=== PATIENT | male | born 1945 | race Two or more races ===

== ENCOUNTER 2022-08-23 14:38 | Inpatient (IN) | payer OTHER ==
[~2022-08-23] VITALS: Ht 188 cm; Wt 81.6 kg
--- NOTE | 2022-08-23 14:48 | NUR ---
SE RECIBE PACIENTE ALERTA Y ORIENTADO X3 DE AMBULANCIA QUIEN REFIERE PRESENTA [place] HACE MESES TAMBIEN REFIERE FATIGA PACIENTE COPD. SE MONITOREAN LOS SV Y SE UBICA EN ASPEN.
[2022-08-23] MEDS ORDERED: TAMS0.4C (14:52)
[2022-08-23] MEDS ORDERED: ELIQUIS2.5 MG (14:52)
[2022-08-23] MEDS ORDERED: VASOTEC2.5 MG (14:52)
[2022-08-23] MEDS ORDERED: MONTELUKAST SODI4 M1 (14:52)
--- NOTE | 2022-08-23 17:17 | NUR ---
SE RECIBE PACIENTE MASCULINO ALERTA Y ORIENTADO X3 SE OBSERVAN BARANDA ELEVADA POR SEGURIDAD SE ЕЛЕНА MUESTRA DE LABORATORIO BAJO MEDIDA ASEPTICA SE ADMINISTRA MEDICAMENTO JERMAIN ORDENES MEDICA SE MANTIENE EN OBSERVAVION POR ALGUNA REACION ADVERSA ORDENDE EJECUTADA RK BOYER
[2022-08-27] MEDS ORDERED: SYMBICORT 16010.2 GM (14:27)
[2022-08-27] MEDS ORDERED: FUROSEMIDE20 MG (14:27)
[2022-08-27] MEDS ORDERED: FLONASE16 GM (14:28)
[2022-08-31] MEDS ORDERED: SYMBICORT 16010.2 GM IH (12:21)
[2022-08-31] MEDS ORDERED: FLONASE16 GM NASAL (12:21)
[2022-08-31] MEDS ORDERED: B Complex CAPSULE PO (12:21)
[2022-08-31] MEDS ORDERED: Neurin-Sl Tablet Sl SL (12:21)
[2022-08-31] MEDS ORDERED: CIPRO500 MG PO (12:21)
[2022-08-31] MEDS ORDERED: INTEGRA PLUS C1 EACH PO (12:21)
[2022-08-31] MEDS ORDERED: ASA81 MG PO (12:21)
[2022-08-31] MEDS ORDERED: INTESTINEX680 M1 PO (12:21)
[2022-08-31] MEDS ORDERED: TAMS0.4C PO (12:21)
[2022-08-31] MEDS ORDERED: FUROSEMIDE20 MG PO (12:21)
[2022-08-31] MEDS ORDERED: PROSCAR5 MG PO (12:21)
[2022-08-31] MEDS ORDERED: VASOTEC20 MG PO (12:21)
== END 2022-08-31 13:36 | disposition home or self-care (01) | DRG 593 ==
LOC: ER 14:38 → MEDI 20:46 → MEDJ 08-29 10:06
PROVIDERS: ADMIT Internal Medicine; ATTEND Internal Medicine
PROC: B44GZZZ Ultrasonography of Left Lower Extremity Arteries (ICD-10-PCS; 2022-08-23)
PROC: B54CZZZ Ultrasonography of Left Lower Extremity Veins (ICD-10-PCS; principal; 2022-08-24)
PROC: B246ZZZ Ultrasonography of Right and Left Heart (ICD-10-PCS; 2022-08-24)
PROC: BW21YZZ Computerized Tomography (CT Scan) of Abdomen and Pelvis using Other Contrast (ICD-10-PCS; 2022-08-24)
PROC: 3E0F7GC Introduction of Other Therapeutic Substance into Respiratory Tract, Via Natural or Artificial Opening (ICD-10-PCS; 2022-08-24)
PROC: CB221ZZ Tomographic (Tomo) Nuclear Medicine Imaging of Lungs and Bronchi using Technetium 99m (Tc-99m) (ICD-10-PCS; 2022-08-27)
DX: L97.829 Non-pressure chronic ulcer of other part of left lower leg with unspecified severity (principal); J44.1 Chronic obstructive pulmonary disease with (acute) exacerbation; L03.116 Cellulitis of left lower limb; N39.0 Urinary tract infection, site not specified; N13.39 Other hydronephrosis; N40.0 Benign prostatic hyperplasia without lower urinary tract symptoms; R33.8 Other retention of urine; R09.02 Hypoxemia; B96.89 Other specified bacterial agents as the cause of diseases classified elsewhere; L08.89 Other specified local infections of the skin and subcutaneous tissue; Z86.718 Personal history of other venous thrombosis and embolism; Z20.822 Contact with and (suspected) exposure to COVID-19

== ENCOUNTER 2022-11-07 16:40 | Emergency (ER) | payer OTHER ==
[~2022-11-07] VITALS: Ht 188 cm; Wt 95.3 kg
[~2022-11-07 16:40] MED LIST: ASA81 MG PO; B Complex CAPSULE PO; CIPRO500 MG PO; ELIQUIS2.5 MG; FLONASE16 GM; FLONASE16 GM NASAL; FUROSEMIDE20 MG; FUROSEMIDE20 MG PO; INTEGRA PLUS C1 EACH PO; INTESTINEX680 M1 PO; MONTELUKAST SODI4 M1; Neurin-Sl Tablet Sl SL; PROSCAR5 MG PO; SYMBICORT 16010.2 GM; SYMBICORT 16010.2 GM IH; TAMS0.4C; TAMS0.4C PO; VASOTEC2.5 MG; VASOTEC20 MG PO
[2022-11-07] MEDS ORDERED: PROVENTIL HFA6.7 GM IH (17:03)
== END 2022-11-07 19:44 | disposition home or self-care (01) ==
LOC: ER 16:40
DX: R33.9 Retention of urine, unspecified (principal); I10 Essential (primary) hypertension; Z87.09 Personal history of other diseases of the respiratory system

== ENCOUNTER 2023-12-26 12:14 | Inpatient (IN) | payer OTHER ==
[~2023-12-26] VITALS: Ht 188 cm; Wt 61.2 kg
[~2023-12-26 12:14] MED LIST changes: +PROVENTIL HFA6.7 GM IH
[2023-12-26] MEDS ORDERED: LEVALBUTEROL HCL 0.63 MG/3 ML SOLUTION IH ONE ×5 (12:43→15:21)
[2023-12-26] MEDS ORDERED: IPRATROPIUM BROMIDE 0.5 MG/2.5 ML AMPUL.NEB IH ONE ×5 (12:43→20:19)
[2023-12-26] MEDS ORDERED: METHYLPREDNISOLONE SOD SUCC 40 MG VIAL IV ONE (12:45)
[2023-12-26 12:53] LABS: HEMATOCRIT 38.4 % (39.0-48.0); MEAN CELL VOLUME 91.5 fL (80.0-100.00); MEAN CORPUSCULAR HGB CONC 33.9 g/dl (32.0-36.0); PLATELET COUNT 162 K/uL (150-450); RED CELL DISTRIBUTION WIDTH 13.3 % (11.5-14.5)
[2023-12-26 13:02] LABS: ABG PH 7.321 (7.35-7.45)
[2023-12-26 13:03] LABS: ABG PO2 61.3 mmHg (80-100); BASE EXCESS 3.2 mmol/l; BICARBONATE 31.2 mmol/l (23-25); SaO2 89.1 %; Tco2 33.1 mmol/l; allen test SATISFACTORY; o2 21 %; puncture site RADIAL RIGHT
[2023-12-26] MEDS ORDERED: METHYLPREDNISOLONE SOD SUCC 40 MG VIAL ONE (13:20)
[2023-12-26] MEDS ORDERED: LEVALBUTEROL HCL 0.63 MG/3 ML SOLUTION IH STA (14:18)
[2023-12-26 14:28] LABS: ABG pCO2 61.9 mmHg (35-45)
[2023-12-26 14:28] LABS: ALBUMIN 3.7 gm/dL (3.4-5.0); BILIRUBIN TOTAL 1.1 mg/dL (0.3-1.2); CALCIUM 8.9 mg/dL (8.5-10.1); CREATININE SERUM 1.17 mg/dL (0.70-1.30); GFR 60.14; GLOBULINA 3.8 G/DL (2.4-3.5); POTASSIUM 3.7 mEq/L (3.5-5.1); TOTAL PROTEIN 7.5 gm/dL (6.4-8.2)
[2023-12-26] MEDS ORDERED: BUDESONIDE 0.5 MG/2 ML AMPUL.NEB IH ONE (15:15)
[2023-12-26] MEDS ORDERED: TAMSULOSIN HCL 0.4 MG CAP PO ONE (17:45)
[2023-12-26] MEDS ORDERED: 0.9 % SODIUM CHLORIDE 1,000 ML IV SCH (19:30)
[2023-12-26] MEDS ORDERED: CEFTRIAXONE SODIUM 2,000 MG in 0.9 % SODIUM CHLORIDE 100 ML IV SCH (19:33)
[2023-12-26 19:45] LABS: ABG PH 7.363 (7.35-7.45); ABG PO2 262.2 mmHg (80-100); ABG pCO2 48.5 mmHg (35-45); BASE EXCESS 0.9 mmol/l; SaO2 99.8 %
[2023-12-26] MEDS ORDERED: ONDANSETRON HCL 4 MG in 0.9 % SODIUM CHLORIDE 50 ML IV PRN (19:45)
[2023-12-26] MEDS ORDERED: ACETAMINOPHEN 500 MG GEL..CAP PO PRN (19:45)
[2023-12-26] MEDS ORDERED: ENALAPRILAT DIHYDRATE 1.25 MG/ML VIAL IV PRN (19:45)
[2023-12-26 19:46] LABS: Tco2 28.5 mmol/l; allen test SATISFACTORY; o2 60 %; puncture site RADIAL RIGHT
[2023-12-26] MEDS ORDERED: IPRATROPIUM BROMIDE 0.5 MG/2.5 ML AMPUL.NEB IH SCH (21:00)
[2023-12-26] MEDS ORDERED: LEVALBUTEROL HCL 0.63 MG/3 ML SOLUTION IH SCH (21:00)
[2023-12-26 21:49] LABS: PARTIAL THROMBOPLASTIN TIME 29.2 SECONDS (22.0-34.0)
[2023-12-26 21:50] LABS: INR 1.4; PROTHROMBIN TIME 14.3 SECONDS (9.0-11.5)
[2023-12-26 21:58] LABS: D DIMER > 35.20 MG/L
[2023-12-27] MEDS ORDERED: DILTIAZEM HCL 125 MG in 0.9 % SODIUM CHLORIDE 100 ML IV SCH (00:45)
[2023-12-27 08:51] LABS: ABG PH 7.406 (7.35-7.45); ABG PO2 165.6 mmHg (80-100); ABG pCO2 44.5 mmHg (35-45); BASE EXCESS 2.2 mmol/l; BICARBONATE 27.4 mmol/l (23-25); SaO2 99.5 %; Tco2 28.7 mmol/l
[2023-12-27] MEDS ORDERED: TAMSULOSIN HCL 0.4 MG CAP PO SCH (09:00)
[2023-12-27] MEDS ORDERED: FAMOTIDINE/PF 20 MG in 0.9 % SODIUM CHLORIDE 8 ML IV PUSH SCH (09:00)
[2023-12-27] MEDS ORDERED: FINASTERIDE 5 MG TABLET PO SCH (09:00)
[2023-12-27 10:59] LABS: allen test SATISFACTORY; puncture site RADIAL RIGHT
[2023-12-27 11:00] LABS: o2 40 %
[2023-12-27] MEDS ORDERED: METHYLPREDNISOLONE SOD SUCC 125 MG VIAL IV ONE (14:45)
[2023-12-27] MEDS ORDERED: NOREPINEPHRINE BITARTRATE 1 MG/ML AMPUL IV SCH (15:15)
[2023-12-27] MEDS ORDERED: NOREPINEPHRINE BITARTRATE 8 MG in DEXTROSE 5 % IN WATER 250 ML IV SCH (15:30)
[2023-12-27] MEDS ORDERED: LEVALBUTEROL HCL 1.25 MG/3 ML SOLUTION IH SCH (17:00)
[2023-12-27] MEDS ORDERED: AZITHROMYCIN 500 MG VIAL IV SCH (17:00)
[2023-12-27] MEDS ORDERED: MEROPENEM 1,000 MG VIAL IV STA (17:49)
[2023-12-27] MEDS ORDERED: METHYLPREDNISOLONE SOD SUCC 125 MG VIAL IV SCH (20:00)
[2023-12-28 08:17] LABS: ABG PH 7.303 (7.35-7.45); ABG PO2 174.6 mmHg (80-100); ABG pCO2 53.1 mmHg (35-45); BASE EXCESS -1.5 mmol/l; BICARBONATE 25.7 mmol/l (23-25); SaO2 99.4 %; Tco2 27.3 mmol/l
[2023-12-28 08:21] LABS: HEMATOCRIT 26.9 % (39.0-48.0); MEAN CORPUSCULAR HGB CONC 34.1 g/dl (32.0-36.0); RED BLOOD COUNT 2.93 M/uL (4.00-6.00); RED CELL DISTRIBUTION WIDTH 13.1 % (11.5-14.5)
[2023-12-28 08:27] LABS: MEAN CORPUSCULAR HEMOGLOBIN 31.3 pg (27.00-32.0)
[2023-12-28 08:28] LABS: HEMOGLOBIN 9.2 g/dL (13-16.00); PLATELET COUNT 116 K/uL (150-450)
[2023-12-28] MEDS ORDERED: MEROPENEM 500 MG/VIAL VIAL IV SCH (09:00)
[2023-12-28 09:44] LABS: BILIRUBIN TOTAL 0.37 mg/dL (0.3-1.2); GLOBULINA 3.6 G/DL (2.4-3.5); POTASSIUM 4.68 mEq/L (3.5-5.1); TOTAL PROTEIN 6.6 gm/dL (6.4-8.2)
[2023-12-28 11:06] LABS: allen test SATISFACTORY; puncture site RADIAL LEFT
[2023-12-28 11:07] LABS: C-REACTIVE PROTEIN 26.6 MG/DL (0.00-0.29); CREATININE SERUM 4.46 mg/dL (0.70-1.30); GFR 12.84
[2023-12-28 11:07] LABS: o2 40 %
[2023-12-28 18:48] LABS: ALBUMIN 3.1 gm/dL (3.4-5.0); BILIRUBIN TOTAL 0.28 mg/dL (0.3-1.2); CALCIUM 6.7 mg/dL (8.5-10.1); GFR 11.36; GLOBULINA 3.1 G/DL (2.4-3.5); POTASSIUM 5.34 mEq/L (3.5-5.1); TOTAL PROTEIN 6.2 gm/dL (6.4-8.2)
[2023-12-28 18:55] LABS: CREATININE SERUM 4.96 mg/dL (0.70-1.30)
[2023-12-29 07:39] LABS: BILIRUBIN TOTAL 0.34 mg/dL (0.3-1.2); CALCIUM 6.6 mg/dL (8.5-10.1); GFR 11.71; POTASSIUM 5.04 mEq/L (3.5-5.1)
[2023-12-29 08:05] LABS: CREATININE SERUM 4.83 mg/dL (0.70-1.30)
[2023-12-29 12:07] LABS: PH,URINE 5.5; URINE BLOOD LARGE; URINE GLUCOSE NEGATIVE (NEGATIVE); URINE LEUKOCYTE MODERATE; URINE NITRATE POSITIVE; URINE UROBILINOGEN 0.2 E.U./dl
[2023-12-29 12:11] LABS: URINE APPEARANCE TURBID; URINE BILIRRUBIN MODERATE (NEGATIVE); URINE COLOR BROWN; URINE PROTEIN >=300 (NEGATIVE)
[2023-12-29 12:28] LABS: URINE RBC LOADED /HPF; URINE WBC LOADED /hpf
[2023-12-29 12:29] LABS: URINE BACTERIA MANY
[2023-12-29 12:30] LABS: URINE EPITHELIAL CELLS 0-4 /HPF
[2023-12-29 12:31] LABS: URINE MUCUS SCANT
[2023-12-29 14:16] LABS: ABG PH 7.324 (7.35-7.45); ABG PO2 95.5 mmHg (80-100); ABG pCO2 46.3 mmHg (35-45); BASE EXCESS -2.7 mmol/l; BICARBONATE 23.6 mmol/l (23-25); SaO2 96.6 %; allen test SATISFACTORY; puncture site RADIAL LEFT
[2023-12-29 14:17] LABS: o2 30 %
[2023-12-29] MEDS ORDERED: AMINO ACIDS 4.25 %/DEXTROSE 5% 1,000 ML PERIFERAL SCH (17:00)
[2023-12-30 06:33] LABS: HEMATOCRIT 29.4 % (39.0-48.0); MEAN CELL VOLUME 90.6 fL (80.0-100.00); MEAN CORPUSCULAR HEMOGLOBIN 30.7 pg (27.00-32.0); MEAN CORPUSCULAR HGB CONC 33.9 g/dl (32.0-36.0); RED BLOOD COUNT 3.24 M/uL (4.00-6.00); RED CELL DISTRIBUTION WIDTH 13.9 % (11.5-14.5)
[2023-12-30 06:34] LABS: PLATELET COUNT 89 K/uL (150-450)
[2023-12-30 06:58] LABS: BILIRUBIN TOTAL 0.29 mg/dL (0.3-1.2); CALCIUM 7.2 mg/dL (8.5-10.1); CREATININE SERUM 3.56 mg/dL (0.70-1.30); GFR 16.65; GLOBULINA 3.2 G/DL (2.4-3.5); POTASSIUM 4.71 mEq/L (3.5-5.1); TOTAL PROTEIN 6.2 gm/dL (6.4-8.2)
[2023-12-30] MEDS ORDERED: SODIUM CHLORIDE 0.45 % 1,000 ML IV SCH (08:15)
[2023-12-30 09:39] LABS: ABG PH 7.279 (7.35-7.45); ABG PO2 129.1 mmHg (80-100); ABG pCO2 57.9 mmHg (35-45); BASE EXCESS -1.4 mmol/l; BICARBONATE 26.5 mmol/l (23-25); SaO2 98.4 %; Tco2 28.3 mmol/l
[2023-12-30 09:46] LABS: allen test SATISFACTORY; o2 50 %; puncture site RADIAL RIGHT
[2023-12-30] MEDS ORDERED: hydrALAZINE HCL 20 MG VIAL IV PRN (10:00)
[2023-12-30] MEDS ORDERED: AA 5 %/CALCIUM/LYTES/DEXT 20 % 2,000 ML CENTRAL SCH (17:00)
[2023-12-30] MEDS ORDERED: AA 4.25%/CAL/LYTES/DEXT 5% 1,000 ML PERIFERAL SCH (17:00)
[2023-12-31 06:34] LABS: HEMATOCRIT 27.6 % (39.0-48.0); HEMOGLOBIN 9.2 g/dL (13-16.00); MEAN CELL VOLUME 92.6 fL (80.0-100.00); MEAN CORPUSCULAR HGB CONC 33.5 g/dl (32.0-36.0); RED BLOOD COUNT 2.98 M/uL (4.00-6.00); RED CELL DISTRIBUTION WIDTH 13.4 % (11.5-14.5)
[2023-12-31 06:36] LABS: PLATELET COUNT 70 K/uL (150-450)
[2023-12-31 07:15] LABS: ALBUMIN 2.8 gm/dL (3.4-5.0); BILIRUBIN TOTAL 0.29 mg/dL (0.3-1.2); CALCIUM 8.2 mg/dL (8.5-10.1); CREATININE SERUM 2.16 mg/dL (0.70-1.30); GFR 29.64; POTASSIUM 4.44 mEq/L (3.5-5.1); TOTAL PROTEIN 5.8 gm/dL (6.4-8.2)
[2023-12-31] MEDS ORDERED: INSULIN LISPRO 1,000 UNIT/10 ML UNITS SUBCUTANEO PRN (08:00)
[2023-12-31] MEDS ORDERED: DEXTROSE 50 % IN WATER 0.5 G/ML DISP.SYRIN IV PRN (08:00)
[2023-12-31 08:16] LABS: ABG PH 7.382 (7.35-7.45); ABG PO2 133.5 mmHg (80-100); ABG pCO2 51.1 mmHg (35-45); BASE EXCESS 3.5 mmol/l; BICARBONATE 29.7 mmol/l (23-25); Tco2 31.3 mmol/l
[2023-12-31 08:17] LABS: o2 30 %; puncture site RADIAL RIGHT
[2023-12-31 08:18] LABS: allen test SATISFACTORY
[2023-12-31] MEDS ORDERED: FINASTERIDE 5 MG TABLET PO SCH ×2 (09:00)
[2023-12-31 09:55] LABS: ALBUMIN 2.9 gm/dL (3.4-5.0); BILIRUBIN TOTAL 0.31 mg/dL (0.3-1.2); CREATININE SERUM 1.98 mg/dL (0.70-1.30); GFR 32.77; GLOBULINA 2.8 G/DL (2.4-3.5); POTASSIUM 4.13 mEq/L (3.5-5.1); TOTAL PROTEIN 5.7 gm/dL (6.4-8.2)
[2023-12-31] MEDS ORDERED: DEXTROSE 5 %-0.45 % SOD CHLORD 1,000 ML IV SCH (10:15)
[2023-12-31] MEDS ORDERED: INSULIN NPH HUMAN ISOPHANE 1,000 UNITS/10 ML UNITS SUBCUTANEO STA (14:12)
[2023-12-31] MEDS ORDERED: DEXTROSE 5 % IN WATER 1,000 ML IV SCH (14:15)
[2023-12-31] MEDS ORDERED: METHYLPREDNISOLONE SOD SUCC 40 MG VIAL IV SCH (17:00)
[2023-12-31] MEDS ORDERED: INSULIN NPH HUMAN ISOPHANE 1,000 UNITS/10 ML UNITS SUBCUTANEO SCH (21:00)
[2024-01-01 07:22] LABS: D DIMER 18.06 MG/L; INR 1.32; PARTIAL THROMBOPLASTIN TIME 26.2 SECONDS (22.0-34.0); PROTHROMBIN TIME 13.6 SECONDS (9.0-11.5)
[2024-01-01 09:46] LABS: ABG PH 7.415 (7.35-7.45); ABG PO2 126.1 mmHg (80-100); ABG pCO2 55.6 mmHg (35-45); BASE EXCESS 8.3 mmol/l; BICARBONATE 34.8 mmol/l (23-25); SaO2 98.9 %; Tco2 36.5 mmol/l; allen test SATISFACTORY; o2 30 %; puncture site RADIAL RIGHT
[2024-01-01 22:25] LABS: ABG PH 7.432 (7.35-7.45); ABG PO2 119.4 mmHg (80-100); ABG pCO2 53.9 mmHg (35-45); BASE EXCESS 8.8 mmol/l; BICARBONATE 35.1 mmol/l (23-25); SaO2 98.8 %; Tco2 36.7 mmol/l; allen test SATISFACTORY; puncture site RADIAL LEFT
[2024-01-01 22:26] LABS: o2 50 %
[2024-01-02] MEDS ORDERED: DILTIAZEM HCL 50 MG/10 ML VIAL IV ONE (03:30)
[2024-01-02 09:29] LABS: HEMATOCRIT 27.8 % (39.0-48.0); HEMOGLOBIN 9.4 g/dL (13-16.00); MEAN CELL VOLUME 91.7 fL (80.0-100.00); MEAN CORPUSCULAR HEMOGLOBIN 31.1 pg (27.00-32.0); MEAN CORPUSCULAR HGB CONC 33.9 g/dl (32.0-36.0); RED BLOOD COUNT 3.03 M/uL (4.00-6.00); RED CELL DISTRIBUTION WIDTH 13.7 % (11.5-14.5)
[2024-01-02 09:32] LABS: PLATELET COUNT 68 K/uL (150-450)
[2024-01-02 09:45] LABS: ALBUMIN 2.8 gm/dL (3.4-5.0); BILIRUBIN TOTAL 0.71 mg/dL (0.3-1.2); CALCIUM 8.2 mg/dL (8.5-10.1); CREATININE SERUM 1.28 mg/dL (0.70-1.30); GFR 54.21; GLOBULINA 2.8 G/DL (2.4-3.5); POTASSIUM 3.58 mEq/L (3.5-5.1); TOTAL PROTEIN 5.6 gm/dL (6.4-8.2)
[2024-01-03] MEDS ORDERED: COLLAGENASE CLOSTRIDIUM HIST. 30 GM TUBE TOP SCH (09:00)
[2024-01-03 10:47] LABS: HEMATOCRIT 29.7 % (39.0-48.0); HEMOGLOBIN 9.9 g/dL (13-16.00); MEAN CELL VOLUME 92.2 fL (80.0-100.00); MEAN CORPUSCULAR HEMOGLOBIN 30.9 pg (27.00-32.0); MEAN CORPUSCULAR HGB CONC 33.5 g/dl (32.0-36.0); RED BLOOD COUNT 3.22 M/uL (4.00-6.00); RED CELL DISTRIBUTION WIDTH 13.4 % (11.5-14.5)
[2024-01-03 11:28] LABS: PLATELET COUNT 79 K/uL (150-450)
[2024-01-04 07:57] LABS: CALCIUM 7.9 mg/dL (8.5-10.1); CREATININE SERUM 0.99 mg/dL (0.70-1.30); GFR 72.92; POTASSIUM 4.21 mEq/L (3.5-5.1)
[2024-01-04] MEDS ORDERED: PANTOPRAZOLE SODIUM 40 MG/VIAL VIAL IV SCH (09:00)
[2024-01-04] MEDS ORDERED: METHYLPREDNISOLONE SOD SUCC 40 MG VIAL IV SCH (17:00)
[2024-01-05] MEDS ORDERED: FUROsemide 20 MG/2 ML VIAL IV SCH (13:00)
[2024-01-05] MEDS ORDERED: METHYLPREDNISOLONE SOD SUCC 40 MG VIAL IV SCH (21:00)
[2024-01-06 06:45] LABS: HEMATOCRIT 25.8 % (39.0-48.0); HEMOGLOBIN 8.8 g/dL (13-16.00); MEAN CELL VOLUME 90.4 fL (80.0-100.00); MEAN CORPUSCULAR HEMOGLOBIN 30.7 pg (27.00-32.0); MEAN CORPUSCULAR HGB CONC 34.2 g/dl (32.0-36.0); PLATELET COUNT 120 K/uL (150-450); RED BLOOD COUNT 2.86 M/uL (4.00-6.00); RED CELL DISTRIBUTION WIDTH 12.9 % (11.5-14.5)
[2024-01-06 07:13] LABS: MANUAL PLATELET COUNT 284
[2024-01-06] MEDS ORDERED: DEXTROSE 50 % IN WATER 0.5 G/ML VIAL IV PRN (07:15)
[2024-01-06 07:27] LABS: ALBUMIN 2.4 gm/dL (3.4-5.0); BILIRUBIN TOTAL 0.57 mg/dL (0.3-1.2); CALCIUM 7.9 mg/dL (8.5-10.1); CREATININE SERUM 1.24 mg/dL (0.70-1.30); GFR 56.24; GLOBULINA 2.5 G/DL (2.4-3.5); MAGNESIUM 2.1 mg/dL (1.8-2.4); PHOSPHOROUS 3.9 mg/dL (2.5-4.9); POTASSIUM 4.88 mEq/L (3.5-5.1); TOTAL PROTEIN 4.9 gm/dL (6.4-8.2)
[2024-01-06 12:06] LABS: HEMATOCRIT 30.9 % (39.0-48.0); HEMOGLOBIN 10.5 g/dL (13-16.00); MEAN CELL VOLUME 90.7 fL (80.0-100.00); MEAN CORPUSCULAR HEMOGLOBIN 30.7 pg (27.00-32.0); MEAN CORPUSCULAR HGB CONC 33.8 g/dl (32.0-36.0); PLATELET COUNT 141 K/uL (150-450); RED BLOOD COUNT 3.41 M/uL (4.00-6.00); RED CELL DISTRIBUTION WIDTH 13.1 % (11.5-14.5)
[2024-01-06] MEDS ORDERED: SODIUM CHLORIDE 0.45 % 1,000 ML IV SCH (21:00)
[2024-01-07 12:10] LABS: ABG PH 7.414 (7.35-7.45); ABG PO2 84.3 mmHg (80-100); BASE EXCESS 6.9 mmol/l; BICARBONATE 33.1 mmol/l (23-25); SaO2 96.6 %; Tco2 34.7 mmol/l
[2024-01-07 12:11] LABS: allen test SATISFACTORY; o2 32 %; puncture site RADIAL RIGHT
[2024-01-08 11:38] LABS: HEMATOCRIT 29.1 % (39.0-48.0); HEMOGLOBIN 9.9 g/dL (13-16.00); MEAN CELL VOLUME 91.2 fL (80.0-100.00); MEAN CORPUSCULAR HEMOGLOBIN 31.1 pg (27.00-32.0); MEAN CORPUSCULAR HGB CONC 34.1 g/dl (32.0-36.0); PLATELET COUNT 134 K/uL (150-450); RED BLOOD COUNT 3.19 M/uL (4.00-6.00); RED CELL DISTRIBUTION WIDTH 12.8 % (11.5-14.5)
[2024-01-08 12:01] LABS: ALBUMIN 2.7 gm/dL (3.4-5.0); BILIRUBIN TOTAL 1.07 mg/dL (0.3-1.2); CALCIUM 8.1 mg/dL (8.5-10.1); CREATININE SERUM 1.24 mg/dL (0.70-1.30); GFR 56.24; GLOBULINA 2.8 G/DL (2.4-3.5); POTASSIUM 4.55 mEq/L (3.5-5.1); TOTAL PROTEIN 5.5 gm/dL (6.4-8.2)
[2024-01-09] MEDS ORDERED: SOD FERRIC GLUC COMPLX/SUCROSE 62.5 MG/5 ML AMPUL IV SCH (12:00)
[2024-01-09] MEDS ORDERED: VITAMIN B COMPLEX 1 EACH PO SCH (17:00)
[2024-01-09] MEDS ORDERED: THIAMINE HCL 100 MG TABLET PO SCH (17:00)
[2024-01-09] MEDS ORDERED: Cyanocobalamin/Mecobalamin 1 TAB.SL SL SCH (17:00)
[2024-01-10] MEDS ORDERED: METHYLPREDNISOLONE SOD SUCC 40 MG VIAL IV SCH (09:00)
[2024-01-12] MEDS ORDERED: AMLODIPINE BESYLATE 2.5 MG TABLET PO SCH (09:00)
[2024-01-13 06:59] LABS: MEAN CELL VOLUME 91.1 fL (80.0-100.00); MEAN CORPUSCULAR HGB CONC 34.8 g/dl (32.0-36.0); RED CELL DISTRIBUTION WIDTH 13.5 % (11.5-14.5)
[2024-01-13 07:24] LABS: ALBUMIN 2.1 gm/dL (3.4-5.0); BILIRUBIN TOTAL 1.15 mg/dL (0.3-1.2); CALCIUM 7.5 mg/dL (8.5-10.1); CREATININE SERUM 0.85 mg/dL (0.70-1.30); GFR 86.95; MAGNESIUM 1.8 mg/dL (1.8-2.4); PHOSPHOROUS 2.2 mg/dL (2.5-4.9); POTASSIUM 4.01 mEq/L (3.5-5.1); TOTAL PROTEIN 4.1 gm/dL (6.4-8.2)
[2024-01-13 07:52] LABS: HEMATOCRIT 20.1 % (39.0-48.0); MEAN CORPUSCULAR HEMOGLOBIN 31.8 pg (27.00-32.0); PLATELET COUNT 84 K/uL (150-450)
[2024-01-13 09:50] LABS: MEAN CELL VOLUME 91.4 fL (80.0-100.00); MEAN CORPUSCULAR HGB CONC 34.2 g/dl (32.0-36.0); RED BLOOD COUNT 2.34 M/uL (4.00-6.00); RED CELL DISTRIBUTION WIDTH 13.3 % (11.5-14.5)
[2024-01-13 11:21] LABS: HEMATOCRIT 21.4 % (39.0-48.0); MEAN CORPUSCULAR HEMOGLOBIN 31.1 pg (27.00-32.0); PLATELET COUNT 81 K/uL (150-450)
[2024-01-13 11:22] LABS: HEMOGLOBIN 7.3 g/dL (13-16.00)
[2024-01-14] MEDS ORDERED: FUROsemide 20 MG/2 ML VIAL IV SCH (03:30)
[2024-01-15] MEDS ORDERED: AMINO ACIDS/PROTEIN HYDROLYS 30 ML BLIST.PACK PO SCH (10:51)
[2024-01-16] MEDS ORDERED: IPRATROPIUM BROMIDE 0.5 MG/2.5 ML AMPUL.NEB IH SCH (09:00)
[2024-01-16] MEDS ORDERED: PANTOPRAZOLE SODIUM 40 MG TABLET.DR PO SCH (09:00)
[2024-01-16 16:50] LABS: MEAN CELL VOLUME 90.4 fL (80.0-100.00); MEAN CORPUSCULAR HGB CONC 35.3 g/dl (32.0-36.0); RED BLOOD COUNT 1.82 M/uL (4.00-6.00); RED CELL DISTRIBUTION WIDTH 13.7 % (11.5-14.5)
[2024-01-16 16:51] LABS: HEMATOCRIT 16.4 % (39.0-48.0); MEAN CORPUSCULAR HEMOGLOBIN 31.8 pg (27.00-32.0); PLATELET COUNT 66 K/uL (150-450)
[2024-01-16 16:59] LABS: HEMOGLOBIN 5.8 g/dL (13-16.00)
[2024-01-16 19:06] LABS: MEAN CELL VOLUME 90.1 fL (80.0-100.00); MEAN CORPUSCULAR HGB CONC 35.1 g/dl (32.0-36.0); RED BLOOD COUNT 1.84 M/uL (4.00-6.00); RED CELL DISTRIBUTION WIDTH 13.9 % (11.5-14.5)
[2024-01-16 19:07] LABS: HEMATOCRIT 16.6 % (39.0-48.0); MEAN CORPUSCULAR HEMOGLOBIN 31.5 pg (27.00-32.0); PLATELET COUNT 70 K/uL (150-450)
[2024-01-16 19:09] LABS: HEMOGLOBIN 5.8 g/dL (13-16.00)
[2024-01-16] MEDS ORDERED: LACTULOSE 20 G/30 ML BLIST.PACK PO ONE (22:00)
[2024-01-16] MEDS ORDERED: MINERAL OIL 30 ML BLIST.PACK PO ONE (22:00)
[2024-01-16] MEDS ORDERED: MAGNESIUM HYDROXIDE 30 ML BLIST.PACK PO ONE (22:00)
[2024-01-17] MEDS ORDERED: FUROsemide 20 MG/2 ML VIAL IV STA (16:54)
[2024-01-17] MEDS ORDERED: FUROsemide 20 MG/2 ML VIAL IV SCH (17:00)
[2024-01-18 10:45] LABS: MEAN CELL VOLUME 94.5 fL (80.0-100.00); MEAN CORPUSCULAR HEMOGLOBIN 32.9 pg (27.00-32.0); RED BLOOD COUNT 2.43 M/uL (4.00-6.00); RED CELL DISTRIBUTION WIDTH 13.9 % (11.5-14.5)
[2024-01-18 10:46] LABS: PLATELET COUNT 88 K/uL (150-450)
[2024-01-19] MEDS ORDERED: NOREPINEPHRINE BITARTRATE 1 MG/ML AMPUL IV STA (05:25)
[2024-01-19 18:51] LABS: ob NEGATIVE (NEGATIVE)
[2024-01-20 06:53] LABS: HEMATOCRIT 24.8 % (39.0-48.0); MEAN CELL VOLUME 90.3 fL (80.0-100.00); MEAN CORPUSCULAR HGB CONC 34.6 g/dl (32.0-36.0); RED BLOOD COUNT 2.74 M/uL (4.00-6.00)
[2024-01-20 08:36] LABS: MEAN CORPUSCULAR HEMOGLOBIN 31.3 pg (27.00-32.0)
[2024-01-20 08:37] LABS: HEMOGLOBIN 8.6 g/dL (13-16.00); PLATELET COUNT 102 K/uL (150-450)
[2024-01-22] MEDS ORDERED: IRON FUM,PS/FOLIC ACID/VITC/B3 1 CAP CAPSULE PO SCH (12:00)
[2024-01-22] MEDS ORDERED: SOD FERRIC GLUC COMPLX/SUCROSE 62.5 MG/5 ML AMPUL IV SCH (12:00)
[2024-01-22 19:15] LABS: COL EPI 110 SECONDS (82-175)
[2024-01-23] MEDS ORDERED: FUROsemide 20 MG/2 ML VIAL IV SCH (01:00)
[2024-01-23 11:28] LABS: HEMATOCRIT 33.1 % (39.0-48.0); HEMOGLOBIN 11.5 g/dL (13-16.00); MEAN CELL VOLUME 91.5 fL (80.0-100.00); MEAN CORPUSCULAR HEMOGLOBIN 31.7 pg (27.00-32.0); MEAN CORPUSCULAR HGB CONC 34.6 g/dl (32.0-36.0); PLATELET COUNT 171 K/uL (150-450); RED BLOOD COUNT 3.62 M/uL (4.00-6.00); RED CELL DISTRIBUTION WIDTH 16.5 % (11.5-14.5)
[2024-01-24 06:58] LABS: HEMATOCRIT 32.9 % (39.0-48.0); HEMOGLOBIN 11.1 g/dL (13-16.00); MEAN CELL VOLUME 92.7 fL (80.0-100.00); MEAN CORPUSCULAR HEMOGLOBIN 31.2 pg (27.00-32.0); MEAN CORPUSCULAR HGB CONC 33.7 g/dl (32.0-36.0); PLATELET COUNT 196 K/uL (150-450); RED BLOOD COUNT 3.55 M/uL (4.00-6.00); RED CELL DISTRIBUTION WIDTH 16.2 % (11.5-14.5)
[2024-01-24] MEDS ORDERED: GABAPENTIN 300 MG CAPSULE PO SCH (17:21)
[2024-01-24] MEDS ORDERED: MORPHINE SULFATE 4 MG/ML CARTRIDGE IV SCH (17:22)
[2024-01-24] MEDS ORDERED: KETOROLAC TROMETHAMINE 30 MG VIAL IV SCH (18:00)
[2024-01-24] MEDS ORDERED: KETOROLAC TROMETHAMINE 30 MG VIAL IV PRN (20:00)
[2024-01-24] MEDS ORDERED: FLONASE16 GM NASAL (20:34)
[2024-01-24] MEDS ORDERED: GABAPENTIN300 MG PO (20:34)
[2024-01-24] MEDS ORDERED: INTEGRA F CAPS1 EACH PO (20:34)
[2024-01-24] MEDS ORDERED: PANTOPRAZOLE SO40 MG PO (20:34)
[2024-01-24] MEDS ORDERED: Neurin-Sl Tablet Sl SL (20:34)
[2024-01-24] MEDS ORDERED: B Complex PO (20:34)
[2024-01-24] MEDS ORDERED: [UNRECOGNIZED DRUG - REMARK] IH (20:34)
[2024-01-24] MEDS ORDERED: TAMS0.4C PO (20:34)
[2024-01-24] MEDS ORDERED: THIAMINE HCL100 MG PO (20:34)
[2024-01-24] MEDS ORDERED: FINASTERIDE5 MG PO (20:34)
== END 2024-01-24 22:00 | DRG 981 ==
LOC: ER 12:14 → ICU 20:00 → SURH 01-06 18:33 → SURG 01-11 04:07
PROVIDERS: Emergency Medicine; General Practice; Internal Medicine; Internal Medicine Critical Care Medicine; Internal Medicine Endocrinology, Diabetes & Metabolism; Internal Medicine Geriatric Medicine; Internal Medicine Hematology & Oncology; Internal Medicine Nephrology; Orthopaedic Surgery Orthopaedic Surgery of the Spine; Specialist; Student in an Organized Health Care Education/Training Program; Urology; ADMIT Internal Medicine; ATTEND Internal Medicine
PROC: BW21ZZZ Computerized Tomography (CT Scan) of Abdomen and Pelvis (ICD-10-PCS; 2023-12-26)
PROC: BG44ZZZ Ultrasonography of Thyroid Gland (ICD-10-PCS; 2023-12-27)
PROC: B24BYZZ Ultrasonography of Heart with Aorta using Other Contrast (ICD-10-PCS; 2023-12-27)
PROC: 5A09557 Assistance with Respiratory Ventilation, Greater than 96 Consecutive Hours, Continuous Positive Airway Pressure (ICD-10-PCS; 2023-12-30)
PROC: BT43ZZZ Ultrasonography of Bilateral Kidneys (ICD-10-PCS; 2023-12-30)
PROC: 02HV33Z Insertion of Infusion Device into Superior Vena Cava, Percutaneous Approach (ICD-10-PCS; 2023-12-30)
PROC: B54NZZZ Ultrasonography of Left Upper Extremity Veins (ICD-10-PCS; 2024-01-05)
PROC: 4A12X4Z Monitoring of Cardiac Electrical Activity, External Approach (ICD-10-PCS; 2024-01-06)
PROC: 30243N1 Transfusion of Nonautologous Red Blood Cells into Central Vein, Percutaneous Approach (ICD-10-PCS; 2024-01-13)
PROC: BW21ZZZ Computerized Tomography (CT Scan) of Abdomen and Pelvis (ICD-10-PCS; 2024-01-17)
PROC: BW40ZZZ Ultrasonography of Abdomen (ICD-10-PCS; 2024-01-20)
PROC: CD271ZZ Tomographic (Tomo) Nuclear Medicine Imaging of Gastrointestinal Tract using Technetium 99m (Tc-99m) (ICD-10-PCS; 2024-01-20)
PROC: 0Y6U0Z0 Detachment at Left 3rd Toe, Complete, Open Approach (ICD-10-PCS; principal; 2024-01-24)
DX: J44.1 Chronic obstructive pulmonary disease with (acute) exacerbation (principal); A41.9 Sepsis, unspecified organism; J96.90 Respiratory failure, unspecified, unspecified whether with hypoxia or hypercapnia; R65.21 Severe sepsis with septic shock; E87.29 Other acidosis; J90 Pleural effusion, not elsewhere classified; N39.0 Urinary tract infection, site not specified; N17.9 Acute kidney failure, unspecified; I82.622 Acute embolism and thrombosis of deep veins of left upper extremity; K92.2 Gastrointestinal hemorrhage, unspecified; R31.0 Gross hematuria; D72.819 Decreased white blood cell count, unspecified; D64.9 Anemia, unspecified; N40.0 Benign prostatic hyperplasia without lower urinary tract symptoms; I95.9 Hypotension, unspecified; B96.20 Unspecified Escherichia coli [E. coli] as the cause of diseases classified elsewhere; N13.9 Obstructive and reflux uropathy, unspecified; L97.529 Non-pressure chronic ulcer of other part of left foot with unspecified severity; D69.6 Thrombocytopenia, unspecified; I10 Essential (primary) hypertension; R60.9 Edema, unspecified; E11.65 Type 2 diabetes mellitus with hyperglycemia; Z79.4 Long term (current) use of insulin

== ENCOUNTER 2024-12-07 12:04 | Inpatient (IN) | payer OTHER ==
[~2024-12-07] VITALS: Ht 182.9 cm; Wt 68.0 kg
[~2024-12-07 12:04] MED LIST changes: +B Complex PO; +FINASTERIDE5 MG PO; +GABAPENTIN300 MG PO; +INTEGRA F CAPS1 EACH PO; +PANTOPRAZOLE SO40 MG PO; +THIAMINE HCL100 MG PO; +[UNRECOGNIZED DRUG - REMARK] IH
[2024-12-07] MEDS ORDERED: METHYLPREDNISOLONE SOD SUCC 125 MG VIAL IV ONE ×2 (12:45→19:30)
[2024-12-07] MEDS ORDERED: LEVALBUTEROL HCL 0.63 MG/3 ML SOLUTION IH SCH (12:45)
[2024-12-07] MEDS ORDERED: METHYLPREDNISOLONE SOD SUCC 125 MG VIAL ONE (12:52)
[2024-12-07] MEDS ORDERED: TAMSULOSIN HCL 0.4 MG CAP PO ONE ×2 (13:30→13:34)
[2024-12-07 13:50] LABS: BASO % 0.3 % (0.1-1.2); EOS # 0.07 (0.04-0.54); EOS % 0.9 % (0.7-7.0); LYMPH # 0.46 (1.18-3.74); MEAN CORPUSCULAR HEMOGLOBIN 28.8 pg (25.6-32.2); MONO # 0.71 (0.24-0.82); MONO % 9.3 % (4.7-12.5); NEUT # 6.37 (1.56-6.13); NEUT % 83.1 % (34.0-71.1); PLATELET COUNT 218 K/uL (163-369); RED BLOOD COUNT 2.85 M/uL (4.63-6.08); RED CELL DISTRIBUTION WIDTH 13.6 % (11.6-14.4)
[2024-12-07 13:57] LABS: HEMATOCRIT 26.6 % (40.1-51.0); HEMOGLOBIN 8.2 g/dL (13.7-17.5)
[2024-12-07] MEDS ORDERED: LEVALBUTEROL HCL 0.63 MG/3 ML SOLUTION IH ONE ×2 (14:00→14:12)
[2024-12-07 14:05] LABS: COVID-19 AG NEGATIVE (NEGATIVE)
[2024-12-07 14:07] LABS: CALCIUM 8.4 mg/dL (8.5-10.1); CREATININE SERUM 1.43 mg/dL (0.70-1.30); GFR 47.58; POTASSIUM 4.25 mEq/L (3.5-5.1)
[2024-12-07 14:11] LABS: INFLUENZA A AG NEGATIVE (NEGATIVE)
[2024-12-07 14:12] LABS: ABG PH 7.276 (7.35-7.45); ABG PO2 65.5 mmHg (80-100); BASE EXCESS 2.1 mmol/l; SaO2 89.5 %; Tco2 33.1 mmol/l
[2024-12-07 14:31] LABS: ABG pCO2 68.2 mmHg (35-45)
[2024-12-07 14:32] LABS: allen test SATISFACTORY; mode NASAL CANNULA; o2 32 %; puncture site RADIAL LEFT
[2024-12-07] MEDS ORDERED: CEFTRIAXONE SODIUM 2,000 MG VIAL ONE (18:15)
[2024-12-07] MEDS ORDERED: CEFTRIAXONE SODIUM 2,000 MG VIAL IV ONE (18:15)
[2024-12-07 18:51] LABS: URINE APPEARANCE Turbid; URINE BILIRRUBIN Moderate (NEGATIVE); URINE BLOOD Large; URINE COLOR Red; URINE GLUCOSE Negative (NEGATIVE); URINE KETONE Negative (NEGATIVE); URINE LEUKOCYTE Large; URINE NITRATE Positive; URINE UROBILINOGEN 0.2 E.U./dl
[2024-12-07 18:55] LABS: URINE CAST 2.14 uL (0.0-1.40)
[2024-12-07 19:46] LABS: URINE BACTERIA > 9821.5 uL (0.0-1933); URINE PROTEIN 300 (NEGATIVE); URINE RBC > 10558.9 uL (0.0-20.8)
[2024-12-07] MEDS ORDERED: 0.9 % SODIUM CHLORIDE 1,000 ML IV SCH (20:15)
[2024-12-07] MEDS ORDERED: FAMOTIDINE/PF 20 MG in 0.9 % SODIUM CHLORIDE 8 ML IV PUSH SCH (20:22)
[2024-12-07] MEDS ORDERED: ACETAMINOPHEN 500 MG GEL..CAP PO PRN (20:30)
[2024-12-07] MEDS ORDERED: FUROsemide 20 MG/2 ML VIAL IV SCH (20:30)
[2024-12-07] MEDS ORDERED: ONDANSETRON HCL 4 MG in 0.9 % SODIUM CHLORIDE 50 ML IV PRN (20:30)
[2024-12-07] MEDS ORDERED: LEVALBUTEROL HCL 1.25 MG/3 ML SOLUTION IH ONE (20:44)
[2024-12-07] MEDS ORDERED: LEVALBUTEROL HCL 1.25 MG/3 ML SOLUTION IH SCH ×2 (21:00)
[2024-12-07] MEDS ORDERED: IPRATROPIUM BROMIDE 0.5 MG/2.5 ML AMPUL.NEB IH SCH (21:00)
[2024-12-07 22:21] LABS: ABG PH 7.296 (7.35-7.45); ABG PO2 71.7 mmHg (80-100); ABG pCO2 63.9 mmHg (35-45); BASE EXCESS 2.1 mmol/l; BICARBONATE 30.4 mmol/l (23-25); SaO2 92.2 %; Tco2 32.4 mmol/l
[2024-12-07 22:22] LABS: allen test SATISFACTORY; mode NASAL CANNULA; o2 48 %; puncture site RADIAL RIGHT
[2024-12-08] VITALS (7 sets, daily range): BP systolic 134–185; BP diastolic 53–90; O2SAT 100
[2024-12-08] MEDS ORDERED: METHYLPREDNISOLONE SOD SUCC 40 MG VIAL IV SCH ×2 (01:00→12:00)
[2024-12-08] MEDS ORDERED: METHYLPREDNISOLONE SOD SUCC 125 MG VIAL ONE (03:56)
[2024-12-08] MEDS ORDERED: FAMOTIDINE/PF 20 MG/2 ML VIAL ONE (03:57)
[2024-12-08 06:46] LABS: INR 1.37; PARTIAL THROMBOPLASTIN TIME 24.5 SECONDS (22.0-34.0); PROTHROMBIN TIME 14.6 SECONDS (9.0-11.5)
[2024-12-08] MEDS ORDERED: ENALAPRILAT DIHYDRATE 1.25 MG/ML VIAL IV SCH (07:49)
[2024-12-08] MEDS ORDERED: RINGERS SOLUTION,LACTATED 1,000 ML IV SCH (08:00)
[2024-12-08] MEDS ORDERED: BUDESONIDE 0.5 MG/2 ML AMPUL.NEB IH SCH (09:00)
[2024-12-08] MEDS ORDERED: CEFTRIAXONE SODIUM 2,000 MG in 0.9 % SODIUM CHLORIDE 100 ML IV SCH (09:00)
[2024-12-08] MEDS ORDERED: FUROsemide 20 MG/2 ML VIAL IV SCH (09:00)
[2024-12-08] MEDS ORDERED: LEVALBUTEROL HCL 1.25 MG/3 ML SOLUTION IH ONE (09:51)
[2024-12-08] MEDS ORDERED: IPRATROPIUM BROMIDE 0.5 MG/2.5 ML AMPUL.NEB IH ONE (09:51)
[2024-12-08] MEDS ORDERED: MEROPENEM 500 MG/VIAL VIAL IV SCH (21:00)
[2024-12-09] VITALS (10 sets, daily range): BP systolic 126–193; BP diastolic 72–94; O2SAT 98–100
[2024-12-09 07:01] LABS: BASO % 0.1 % (0.1-1.2); HEMATOCRIT 30.6 % (40.1-51.0); HEMOGLOBIN 10.1 g/dL (13.7-17.5); LYMPH # 0.17 (1.18-3.74); LYMPH % 0.5 % (19.3-53.1); MEAN CORPUSCULAR HEMOGLOBIN 29.3 pg (25.6-32.2); MONO # 1.07 (0.24-0.82); MONO % 2.9 % (4.7-12.5); NEUT # 33.08 (1.56-6.13); NEUT % 91.2 % (34.0-71.1); PLATELET COUNT 159 K/uL (163-369); RED BLOOD COUNT 3.45 M/uL (4.63-6.08); RED CELL DISTRIBUTION WIDTH 14.9 % (11.6-14.4)
[2024-12-09 11:51] LABS: ALBUMIN 2.6 gm/dL (3.4-5.0); BILIRUBIN TOTAL 0.75 mg/dL (0.3-1.2); CALCIUM 7.4 mg/dL (8.5-10.1); CREATININE SERUM 1.7 mg/dL (0.70-1.30); GFR 38.97; GLOBULINA 3.9 G/DL (2.4-3.5); MAGNESIUM 2.1 mg/dL (1.8-2.4); PHOSPHOROUS 4.3 mg/dL (2.5-4.9); POTASSIUM 4.22 mEq/L (3.5-5.1); PROSTATIC SPECIFIC ANTIGEN 3.72 NG/ML (0.010-4.00); TOTAL PROTEIN 6.5 gm/dL (6.4-8.2)
[2024-12-09 11:52] LABS: C-REACTIVE PROTEIN 20.1 MG/DL (0.00-0.29)
[2024-12-10 01:00] VITALS: BP 158/78; O2SAT 100
[2024-12-10] MEDS ORDERED: DEXTROSE 5 % AND 0.9 % NACL 1,000 ML IV SCH (07:15)
[2024-12-10 07:23] LABS: BASO % 0.1 % (0.1-1.2); HEMATOCRIT 31.4 % (40.1-51.0); LYMPH # 0.13 (1.18-3.74); LYMPH % 0.5 % (19.3-53.1); MONO # 0.57 (0.24-0.82); MONO % 2.2 % (4.7-12.5); NEUT # 24.16 (1.56-6.13); NEUT % 92.8 % (34.0-71.1); PLATELET COUNT 147 K/uL (163-369); RED BLOOD COUNT 3.55 M/uL (4.63-6.08); RED CELL DISTRIBUTION WIDTH 14.7 % (11.6-14.4)
[2024-12-10 07:28] LABS: HEMOGLOBIN 10.3 g/dL (13.7-17.5)
[2024-12-10 07:45] LABS: PH,URINE 5.5 (5.0-8.0); URINE APPEARANCE Turbid; URINE BILIRRUBIN Negative (NEGATIVE); URINE BLOOD Large; URINE COLOR Yellow; URINE GLUCOSE Negative (NEGATIVE); URINE KETONE Negative (NEGATIVE); URINE LEUKOCYTE Large; URINE NITRATE Negative; URINE PROTEIN 30 (NEGATIVE); URINE UROBILINOGEN 0.2 E.U./dl
[2024-12-10 07:49] LABS: URINE BACTERIA 7830.9 uL (0.0-1933); URINE EPITHELIAL CELLS 9.1 uL (0.0-38.8); URINE RBC 57.7 uL (0.0-20.8); URINE WBC 5246.2 uL (0.0-23.2)
[2024-12-10 08:03] LABS: ALBUMIN 2.4 gm/dL (3.4-5.0); BILIRUBIN TOTAL 0.42 mg/dL (0.3-1.2); CALCIUM 7.6 mg/dL (8.5-10.1); CREATININE SERUM 1.68 mg/dL (0.70-1.30); GFR 39.51; GLOBULINA 4.4 G/DL (2.4-3.5); PHOSPHOROUS 3.8 mg/dL (2.5-4.9); POTASSIUM 3.33 mEq/L (3.5-5.1); TOTAL PROTEIN 6.8 gm/dL (6.4-8.2)
[2024-12-10 08:10] LABS: URINE CAST 1.17 uL (0.0-1.40)
[2024-12-10 08:12] VITALS: BP 121/65; O2SAT 99
[2024-12-10] MEDS ORDERED: METHYLPREDNISOLONE SOD SUCC 40 MG VIAL IV SCH (09:00)
[2024-12-10] MEDS ORDERED: PANTOPRAZOLE SODIUM 40 MG/VIAL VIAL IV PUSH SCH (09:00)
[2024-12-10] MEDS ORDERED: POTASSIUM CHLORIDE IN WATER 40 MEQ/100 ML PIGGYBAG IV NR (10:00)
[2024-12-10] MEDS ORDERED: POTASSIUM CHLORIDE IN WATER 40 MEQ/100 ML PIGGYBAG IV ONE (10:04)
[2024-12-10 11:36] LABS: ABG PH 7.407 (7.35-7.45); ABG PO2 95.3 mmHg (80-100); BASE EXCESS 8.7 mmol/l; BICARBONATE 35.7 mmol/l (23-25); SaO2 97.6 %; Tco2 37.4 mmol/l; allen test SATISFACTORY; mode VENTURY MASK; o2 50 %; puncture site RADIAL LEFT
[2024-12-10 13:56] VITALS: O2SAT 100
[2024-12-10 16:49] VITALS: O2SAT 100
[2024-12-10 17:25] VITALS: BP 180/97
[2024-12-10 22:16] VITALS: O2SAT 100
[2024-12-11] VITALS (9 sets, daily range): BP systolic 17–146; BP diastolic 74–76; O2SAT 88–100
[2024-12-11] MEDS ORDERED: VANCOMYCIN HCL 1,000 MG VIAL IV ONE (17:15)
[2024-12-12] VITALS (9 sets, daily range): BP systolic 152–164; BP diastolic 72–84; O2SAT 97–199
[2024-12-12] MEDS ORDERED: METHYLPREDNISOLONE SOD SUCC 40 MG VIAL IV SCH ×2 (01:00→21:00)
[2024-12-12 08:32] LABS: BASO % 0.1 % (0.1-1.2); HEMATOCRIT 33.4 % (40.1-51.0); HEMOGLOBIN 10.4 g/dL (13.7-17.5); LYMPH # 0.21 (1.18-3.74); LYMPH % 1.3 % (19.3-53.1); MEAN CORPUSCULAR HEMOGLOBIN 29.1 pg (25.6-32.2); MONO # 0.61 (0.24-0.82); MONO % 3.7 % (4.7-12.5); NEUT # 15.58 (1.56-6.13); NEUT % 94.4 % (34.0-71.1); RED BLOOD COUNT 3.58 M/uL (4.63-6.08); RED CELL DISTRIBUTION WIDTH 13.9 % (11.6-14.4)
[2024-12-12 08:49] LABS: ALBUMIN 2.5 gm/dL (3.4-5.0); BILIRUBIN TOTAL 0.33 mg/dL (0.3-1.2); CALCIUM 7.8 mg/dL (8.5-10.1); CREATININE SERUM 1.63 mg/dL (0.70-1.30); GFR 40.91; GLOBULINA 3.5 G/DL (2.4-3.5); POTASSIUM 3.46 mEq/L (3.5-5.1)
[2024-12-12 11:30] LABS: PLATELET COUNT 99 K/uL (163-369)
[2024-12-12] MEDS ORDERED: RINGERS SOLUTION,LACTATED 1,000 ML IV SCH (12:30)
[2024-12-12] MEDS ORDERED: POTASSIUM BICARBONATE/CIT AC 25 MEQ TABLET.EFF PO SCH (13:00)
[2024-12-13] VITALS (9 sets, daily range): BP systolic 162–179; BP diastolic 58–82; O2SAT 96–99
[2024-12-13] MEDS ORDERED: POTASSIUM BICARBONATE/CIT AC 25 MEQ TABLET.EFF PO SCH (13:00)
[2024-12-14 01:20] VITALS: BP 159/91
[2024-12-14 06:48] LABS: BASO % 0.1 % (0.1-1.2); HEMATOCRIT 33.7 % (40.1-51.0); HEMOGLOBIN 10.5 g/dL (13.7-17.5); LYMPH # 0.22 (1.18-3.74); LYMPH % 1.7 % (19.3-53.1); MEAN CORPUSCULAR HEMOGLOBIN 28.9 pg (25.6-32.2); MONO # 0.58 (0.24-0.82); MONO % 4.4 % (4.7-12.5); NEUT # 12.18 (1.56-6.13); NEUT % 93.1 % (34.0-71.1); RED BLOOD COUNT 3.63 M/uL (4.63-6.08); RED CELL DISTRIBUTION WIDTH 13.5 % (11.6-14.4)
[2024-12-14 07:02] LABS: PLATELET COUNT 102 K/uL (163-369)
[2024-12-14 07:55] LABS: ALBUMIN 2.4 gm/dL (3.4-5.0); BILIRUBIN TOTAL 0.58 mg/dL (0.3-1.2); CREATININE SERUM 1.35 mg/dL (0.70-1.30); GFR 50.85; GLOBULINA 3.2 G/DL (2.4-3.5); MAGNESIUM 1.9 mg/dL (1.8-2.4); PHOSPHOROUS 2.8 mg/dL (2.5-4.9); POTASSIUM 4.16 mEq/L (3.5-5.1); TOTAL PROTEIN 5.6 gm/dL (6.4-8.2)
[2024-12-14 09:05] VITALS: BP 185/87; O2SAT 98
[2024-12-14] MEDS ORDERED: VANCOMYCIN HCL 1,000 MG VIAL IV SCH (13:45)
[2024-12-14 14:08] VITALS: O2SAT 90
[2024-12-14] MEDS ORDERED: LACTOBACILLUS ACIDOPHILUS 1 CAP CAP PO SCH (17:00)
[2024-12-14 17:11] VITALS: BP 176/89; O2SAT 92
[2024-12-14] MEDS ORDERED: NIFEDIPINE 30 MG TAB.SA.OSM PO NR (20:00)
[2024-12-14] MEDS ORDERED: hydrALAZINE HCL 20 MG VIAL IV PRN (20:00)
[2024-12-14] MEDS ORDERED: ACETAZOLAMIDE SODIUM 500 MG VIAL IV SCH (21:00)
[2024-12-14 22:27] VITALS: O2SAT 99
[2024-12-15 00:09] VITALS: O2SAT 98
[2024-12-15 01:01] VITALS: BP 157/75; O2SAT 96
[2024-12-15] MEDS ORDERED: SODIUM CHLORIDE 0.45 % 1,000 ML IV SCH (07:00)
[2024-12-15] MEDS ORDERED: NIFEDIPINE 30 MG TAB.SA.OSM PO SCH (09:00)
[2024-12-15] MEDS ORDERED: ACETAZOLAMIDE SODIUM 500 MG VIAL IV SCH (13:00)
[2024-12-15 17:13] VITALS: O2SAT 98
[2024-12-15 17:34] VITALS: BP 132/56
[2024-12-15 19:46] VITALS: O2SAT 98
[2024-12-16] VITALS (9 sets, daily range): BP systolic 146–157; BP diastolic 69–84; O2SAT 97–100
[2024-12-16] MEDS ORDERED: VANCOMYCIN HCL 1,000 MG VIAL IV SCH (09:00)
[2024-12-16 10:08] LABS: BASO % 0.2 % (0.1-1.2); HEMOGLOBIN 10.2 g/dL (13.7-17.5); LYMPH # 0.39 (1.18-3.74); LYMPH % 3.4 % (19.3-53.1); MEAN CORPUSCULAR HEMOGLOBIN 28.4 pg (25.6-32.2); MONO # 0.66 (0.24-0.82); MONO % 5.7 % (4.7-12.5); NEUT # 10.45 (1.56-6.13); NEUT % 89.9 % (34.0-71.1); RED BLOOD COUNT 3.59 M/uL (4.63-6.08); RED CELL DISTRIBUTION WIDTH 13.3 % (11.6-14.4)
[2024-12-16 10:11] LABS: PLATELET COUNT 111 K/uL (163-369)
[2024-12-16 10:37] LABS: ALBUMIN 2.4 gm/dL (3.4-5.0); BILIRUBIN TOTAL 0.81 mg/dL (0.3-1.2); CALCIUM 7.8 mg/dL (8.5-10.1); CREATININE SERUM 1.02 mg/dL (0.70-1.30); GFR 70.27; GLOBULINA 3.2 G/DL (2.4-3.5); MAGNESIUM 1.8 mg/dL (1.8-2.4); PHOSPHOROUS 3.1 mg/dL (2.5-4.9); POTASSIUM 4.26 mEq/L (3.5-5.1); TOTAL PROTEIN 5.6 gm/dL (6.4-8.2)
[2024-12-16] MEDS ORDERED: MIDAZOLAM HCL 2 MG/2 ML VIAL IV PUSH ONE (19:00)
[2024-12-16] MEDS ORDERED: fentaNYL CITRATE 50 MCG/ML AMPUL IV PUSH ONE (19:00)
[2024-12-17] VITALS (8 sets, daily range): BP systolic 135–142; BP diastolic 55–70; O2SAT 88–910
[2024-12-18] VITALS (7 sets, daily range): BP systolic 142–174; BP diastolic 79–90; O2SAT 90–100
== END 2024-12-18 17:55 | disposition home or self-care (01) | DRG 854 ==
LOC: ER 12:04 → ICU-2 21:10 → MEDJ 12-10 09:59
PROVIDERS: Emergency Medicine; General Practice; Internal Medicine; Internal Medicine Infectious Disease; ADMIT Internal Medicine; ATTEND Internal Medicine
PROC: 3E0F7GC Introduction of Other Therapeutic Substance into Respiratory Tract, Via Natural or Artificial Opening (ICD-10-PCS; 2024-12-07)
PROC: BW21ZZZ Computerized Tomography (CT Scan) of Abdomen and Pelvis (ICD-10-PCS; 2024-12-07)
PROC: 30233N1 Transfusion of Nonautologous Red Blood Cells into Peripheral Vein, Percutaneous Approach (ICD-10-PCS; 2024-12-08)
PROC: B24BYZZ Ultrasonography of Heart with Aorta using Other Contrast (ICD-10-PCS; 2024-12-09)
PROC: 4A12X4Z Monitoring of Cardiac Electrical Activity, External Approach (ICD-10-PCS; 2024-12-10)
PROC: 0T133JD Bypass Right Kidney Pelvis to Cutaneous with Synthetic Substitute, Percutaneous Approach (ICD-10-PCS; principal; 2024-12-15)
DX: A41.9 Sepsis, unspecified organism (principal); J44.1 Chronic obstructive pulmonary disease with (acute) exacerbation; N39.0 Urinary tract infection, site not specified; N17.9 Acute kidney failure, unspecified; N13.30 Unspecified hydronephrosis; R09.02 Hypoxemia; I10 Essential (primary) hypertension; I50.9 Heart failure, unspecified; D64.9 Anemia, unspecified; D72.829 Elevated white blood cell count, unspecified; B95.2 Enterococcus as the cause of diseases classified elsewhere; B96.20 Unspecified Escherichia coli [E. coli] as the cause of diseases classified elsewhere; R33.9 Retention of urine, unspecified